=== PATIENT | male | born 1995 | race Caucasian/White ===

== ENCOUNTER 2018-12-24 16:44 | Emergency (ER) | payer OTHER ==
--- NOTE | 2018-12-24 17:12 | ED ---
GI/ HPI - HPI Summary HPI Summary: Pt is a 23 y/o male who presents to the ED c/o burning with urination. He began to have the burning sensation 2-3 days ago, and it happens when he goes prolonged periods without urinating. Pt notes the sx get better as the day progresses. He denies any fever, back pain, abdominal pain, rash, testicular pain, or penile discharge. Pt is currently sexually active, does not use protection, and is uncircumsized. He notes that the symptoms began shortly after using a silicon-based lubricant. He denies any hx of UTI. - History of Current Complaint Chief Complaint: EDUrogenitalProblems Stated Complaint: UROGENITAL PROBLEMS Hx Obtained From: Patient Onset/Duration: Started Days Ago - 2-3 days, Still Present Timing: Constant Pain Intensity: 0 Additional Locations for Males: Penis Pain Characteristics: Burning Associated Signs and Symptoms: Positive: Negative Additional Signs & Symptoms: Negative: Penile Discharge, Lesions Aggravating Factor(s): Nothing Alleviating Factor(s): Nothing - Allergy/Home Medications Allergies/Adverse Reactions: Allergies Allergy/AdvReac Type Severity Reaction Status Date / Time No Known Allergies Allergy Verified 12/24/18 16:48 PMH/Surg Hx/FS Hx/Imm Hx Endocrine/Hematology History: Denies: Hx Diabetes Cardiovascular History: Denies: Hx Hypertension History: Denies: Other Problems/Disorders - UTI Infectious Disease History: No Infectious Disease History: Denies: Traveled Outside the [place] in Last 30 Days - Family History Known Family History: Negative: Hypertension, Diabetes - Social History Alcohol Use: None Hx Substance Use: No Substance Use Type: Reports: None Hx Tobacco Use: No Smoking Status (MU): Never Smoked Tobacco Review of Systems Negative: Fever Negative: Abdominal Pain Positive: burning, other - NEGATIVE: discharge from penis, testicular pain Negative: Myalgia - back Negative: Rash All Other Systems Reviewed And Are Negative: Yes Physical Exam - Summary Physical Exam Summary: Appearance: Well appearing, no pain distress Skin: warm, dry, reflects adequate perfusion Head/face: normal Eyes: EOMI, BENNY ENT: mucous membranes moist Neck: supple, non-tender Respiratory: CTA, breath sounds present Cardiovascular: RRR, pulses symmetrical Abdomen: non-tender, soft Bowel Sounds: present Musculoskeletal: normal, strength/ROM intact Neuro: normal, sensory motor intact, A&Ox3 : no rash, no lesions, no discharge, no inguinal lymphadenopathy Triage Information Reviewed: Yes Vital Signs On Initial Exam: Initial Vitals Temp Pulse Resp BP Pulse Ox 97.7 F 75 16 143/74 100 12/24/18 16:46 12/24/18 16:46 12/24/18 16:46 12/24/18 16:46 12/24/18 16:46 Vital Signs Reviewed: Yes Diagnostics - Vital Signs Vital Signs Temp Pulse Resp BP Pulse Ox 12/24/18 16:46 97.7 F 75 16 143/74 100 - Laboratory Lab Statement: Any lab studies that have been ordered have been reviewed, and results considered in the medical decision making process. GIGU Course/Dx - Course Course Of Treatment: Nurse's notes reviewed. Patient with complaint of dysuria which may be urethritis. No definite UTI with no bacteria in the urine. GC chlamydia probe is pending. Treated with Rocephin, Zithromax here. Cautioned to have partner treated. We will call with positive results. Follow-up [facility]. - Diagnoses Differential Diagnoses - Male: Urethritis, Urinary Tract Infection Provider Diagnoses: Urethritis Discharge - Sign-Out/Discharge Documenting (check all that apply): Patient Departure - Discharge Patient Received Moderate/Deep Sedation with Procedure: No - Discharge Plan Condition: Improved Disposition: HOME Patient Education Materials: Sexually Transmitted Diseases (ED), Nonspecific Urethritis in Men (ED) Referrals: [facility] [[email or web address], APPLICATION, OTHER] - Additional Instructions: We will call with positive results for STD within 4 days. You have been treated for it. Do not have sexual intercourse for at least one week. Always have protected intercourse. If your positive your partner will need to be treated as well. Return if worse, discharge, fever, new symptoms or other concerns. - Billing Disposition and Condition Condition: IMPROVED Disposition: Home - Attestation Statements Document Initiated by Darlene: Yes Documenting Scribe: Liz Story Provider For Whom Darlene is Documenting (Include Credential): Francois Dinero MD Scribe Attestation: Liz Ding scribed for Francois Dinero MD on 12/24/18 at 1803. Scribe Documentation Reviewed: Yes Provider Attestation: The documentation as recorded by the Liz temple accurately reflects the service I personally performed and the decisions made by me, Francois Dinero MD Status of Scribe Document: Viewed
[2018-12-24 17:15] LABS: Urine Appearance Cloudy; Urine Bacteria Absent (Absent); Urine Bilirubin Negative (Negative); Urine Blood Negative (Negative); Urine Color Yellow; Urine Glucose Negative (Negative); Urine Ketones Negative (Negative); Urine Nitrite Negative (Negative); Urine Protein Negative (Negative); Urine Red Blood Cell Absent (Absent); Urine Urobilinogen Negative (Negative); Urine White Blood Cell 3+(>20/hpf) (Absent)
[2018-12-24] MEDS ORDERED: cefTRIAXone VIAL(*) 250 MG VIAL IM ONE (17:16)
[2018-12-24] MEDS ORDERED: Azithromycin TAB* 250 MG PO ONE (17:16)
[2018-12-24 17:34] VITALS: BP 121/78
[2018-12-26 12:38] LABS: Neisseria gonorrhoeae (GC) RNA Negative (Negative)
== END 2018-12-24 17:33 | disposition home or self-care (01) ==
LOC: ED 16:44
DX: N34.2 Other urethritis (principal)
CPT/HCPCS: 81003; 81015; 87086; 87491; 87591; 96372; 99282; A9270-GY; J0696